=== PATIENT | male | born 1975 | race Caucasian/White ===

== ENCOUNTER 2018-01-08 10:45 | Emergency (ER) | payer BC ==
--- NOTE | 2018-01-08 12:36 | EDM.PDOC ---
ED HPI GENERAL MEDICAL PROBLEM - General Chief Complaint: General Stated Complaint: HAND TINGLING HIGH BP Time Seen by Provider: 01/08/18 11:05 Source of Information: Reports: Patient, Family History Limitations: Reports: No Limitations - History of Present Illness INITIAL COMMENTS - FREE TEXT/NARRATIVE: [place] comes into [facility] ED with a 3 day hx of some lt headiness, tingling in hands , and malaise. He does not report any chest pain, SOB, palpitations, GI upset or voiding problems. He does manual farm labor for a living, admittedly obese, chews snuff, and drinks about a pint of vodka per week. His father of an AMI at age 46. He does not see a physician for routine medical care. - Related Data Allergies Allergy/AdvReac Type Severity Reaction Status Date / Time seasonal Allergy Other Uncoded 01/08/18 11:05 Home Meds: Home Meds Cetirizine [ZyrTEC] 10 mg PO BEDTIME 01/08/18 [History] Levothyroxine 75 mcg PO ACBREAKFAST #20 tab 01/08/18 [Rx] Naproxen Sodium [Aleve] 440 mg PO BID 01/08/18 [History] Past Medical History HEENT History: Reports: Allergic Rhinitis Respiratory History: Reports: Other (See Below) (snoring at night, morbid obesity) Musculoskeletal History: Reports: Arthritis - Past Surgical History Musculoskeletal Surgical History: Reports: Arthroscopic Knee Social & Family History - Tobacco Use Smoking Status *Q: Never Smoker - Caffeine Use Caffeine Use: Reports: Energy Drinks - Alcohol Use Days Per Week of Alcohol Use: 2 Number of Drinks Per Day: 3 Total Drinks Per Week: 6 - Recreational Drug Use Recreational Drug Use: No ED ROS GENERAL - Review of Systems Review Of Systems: See Below Constitutional: Reports: No Symptoms HEENT: Reports: No Symptoms Respiratory: Reports: No Symptoms Cardiovascular: Reports: Lightheadedness Endocrine: Reports: No Symptoms GI/Abdominal: Reports: No Symptoms : Reports: No Symptoms Musculoskeletal: Reports: Joint Pain (R knee arthritic) Skin: Reports: No Symptoms Neurological: Reports: Headache, Tingling (hands and fingers) Psychiatric: Reports: No Symptoms Hematologic/Lymphatic: Reports: No Symptoms Immunologic: Reports: Seasonal Allergy ED EXAM, GENERAL - Physical Exam Exam: See Below Exam Limited By: No Limitations General Appearance: Alert, WD/WN, No Apparent Distress, Obese Eye Exam: Bilateral Eye: EOMI, Normal Inspection, PERRL Ears: Normal External Exam Nose: Normal Inspection Throat/Mouth: Normal Inspection, Normal Lips, Normal Teeth, Normal Gums, Normal Oropharynx, Normal Voice Head: Normocephalic Neck: Normal Inspection, Supple, Non-Tender, Full Range of Motion Respiratory/Chest: No Respiratory Distress, Lungs Clear, Normal Breath Sounds, No Accessory Muscle Use, Chest Non-Tender Cardiovascular: Normal Peripheral Pulses, Regular Rate, Rhythm, No Murmur GI/Abdominal: Normal Bowel Sounds, Soft, Non-Tender, No Organomegaly, No Distention, No Mass (Male) Exam: Deferred Rectal (Males) Exam: Deferred Back Exam: Normal Inspection Extremities: Normal Inspection Neurological: Alert, Oriented, CN II-XII Intact, Normal Cognition, Normal Gait, No Motor/Sensory Deficits Psychiatric: Normal Affect, Normal Mood Skin Exam: Warm, Dry, Intact, Normal Color, No Rash Lymphatic: No Adenopathy Course - Vital Signs Text/Narrative:: Following assessment at the [facility] ED, screening labs, chest x ray and ekg were performed. The ekg was wnl for age, chest x ray wnl for age, and labs noted normal CBC and UA; the CMP noted TSH 11.74, Troponin I <0.017, mild elevation of LFTs. Additional evaluation is suggested, and an appt with a PCP will be secured before discharge. Mr. Story has hypothyroidism, and will start levothyroxine 0.075 mg qd. He needs follow up including cardiac stress testing and a sleep study for suspected ELIAS. Last Recorded V/S: Last Vital Signs Temp 36.6 C 01/08/18 12:00 Pulse 75 01/08/18 12:00 Resp 18 01/08/18 12:00 BP 147/93 H 01/08/18 12:00 Pulse Ox 98 01/08/18 12:00 - Orders/Labs/Meds Orders: Active Orders 24 hr Category Date Time Status Chest 1V Frontal [CR] Stat Exams 01/08/18 10:55 Taken UA W/MICROSCOPIC [URIN] Stat Lab 01/08/18 11:59 Ordered EKG 12 Lead [EK] Routine Ther 01/08/18 10:55 Ordered Labs: Laboratory Tests 01/08/18 01/08/18 01/08/18 Range/Units 11:10 11:10 11:10 WBC 5.3 (4.5-12.0) X10-3/uL RBC 4.84 (4.30-5.75) x10(6)uL Hgb 14.9 (11.5-15.5) g/dL Hct 44.2 (30.0-51.3) % MCV 91.4 (80-96) fL MCH 30.9 (27.7-33.6) pg MCHC 33.8 (32.2-35.4) g/dL RDW 12.4 (11.5-15.5) % Plt Count 280 (125-369) X10(3)uL MPV 7.3 L (7.4-10.4) fL Neut % (Auto) 74.7 (46-82) % Lymph % (Auto) 14.3 (13-37) % Tyler % (Auto) 7.5 (4-12) % Eos % (Auto) 3 (1.0-5.0) % Baso % (Auto) 1 (0-2) % Neut # (Auto) 4.0 (1.6-8.3) # Lymph # (Auto) 0.8 (0.6-5.0) # Tyler # (Auto) 0.4 (0.0-1.3) # Eos # (Auto) 0.1 (0.0-0.8) # Baso # (Auto) 0.0 (0.0-0.2) # D-Dimer, Quantitative 0.47 (0.0-0.59) mg/LFEU Sodium 134 L (135-145) mmol/L Potassium 4.3 (3.5-5.3) mmol/L Chloride 99 L (100-110) mmol/L Carbon Dioxide 29 (21-32) mmol/L BUN 19 H (7-18) mg/dL Creatinine 0.9 (0.70-1.30) mg/dL Est Cr Clr Drug Dosing 110.40 mL/min Estimated GFR (MDRD) > 60 (>60) BUN/Creatinine Ratio 21.1 H (9-20) Glucose 107 (80-116) mg/dL Calcium 9.2 (8.6-10.2) mg/dL Total Bilirubin 1.1 (0.1-1.3) mg/dL AST 31 H (5-25) IU/L ALT 46 H (12-36) U/L Alkaline Phosphatase 54 L (56-112) IU/L Troponin I (<0.017-0.056) ng/mL Total Protein 7.9 (6.0-8.0) g/dL Albumin 3.9 (3.5-5.2) g/dL Globulin 4.0 g/dL Albumin/Globulin Ratio 1.0 TSH, Ultra Sensitive (0.36-3.74) IU/mL Urine Color (YELLOW) Urine Appearance (CLEAR) Urine pH (5.0-6.5) Ur Specific [place] (1.010-1.025) Urine Protein (NEGATIVE) mg/dL Urine Glucose (UA) (NEGATIVE) mg/dL Urine Ketones (NEGATIVE) mg/dL Urine Occult Blood (NEGATIVE) Urine Nitrite (NEGATIVE) Urine Bilirubin (NEGATIVE) Urine Urobilinogen (NEGATIVE) mg/dL Ur Leukocyte Esterase (NEGATIVE) Urine WBC (0) Ur Squamous Epith Cells (NS,R,O) Urine Bacteria (NS) 01/08/18 01/08/18 Range/Units 11:10 11:59 WBC (4.5-12.0) X10-3/uL RBC (4.30-5.75) x10(6)uL Hgb (11.5-15.5) g/dL Hct (30.0-51.3) % MCV (80-96) fL MCH (27.7-33.6) pg MCHC (32.2-35.4) g/dL RDW (11.5-15.5) % Plt Count (125-369) X10(3)uL MPV (7.4-10.4) fL Neut % (Auto) (46-82) % Lymph % (Auto) (13-37) % Tyler % (Auto) (4-12) % Eos % (Auto) (1.0-5.0) % Baso % (Auto) (0-2) % Neut # (Auto) (1.6-8.3) # Lymph # (Auto) (0.6-5.0) # Tyler # (Auto) (0.0-1.3) # Eos # (Auto) (0.0-0.8) # Baso # (Auto) (0.0-0.2) # D-Dimer, Quantitative (0.0-0.59) mg/LFEU Sodium (135-145) mmol/L Potassium (3.5-5.3) mmol/L Chloride (100-110) mmol/L Carbon Dioxide (21-32) mmol/L BUN (7-18) mg/dL Creatinine (0.70-1.30) mg/dL Est Cr Clr Drug Dosing mL/min Estimated GFR (MDRD) (>60) BUN/Creatinine Ratio (9-20) Glucose (80-116) mg/dL Calcium (8.6-10.2) mg/dL Total Bilirubin (0.1-1.3) mg/dL AST (5-25) IU/L ALT (12-36) U/L Alkaline Phosphatase (56-112) IU/L Troponin I < 0.017 L (<0.017-0.056) ng/mL Total Protein (6.0-8.0) g/dL Albumin (3.5-5.2) g/dL Globulin g/dL Albumin/Globulin Ratio TSH, Ultra Sensitive 11.71 H* (0.36-3.74) IU/mL Urine Color Yellow (YELLOW) Urine Appearance Clear (CLEAR) Urine pH 6.5 (5.0-6.5) Ur Specific [place] 1.015 (1.010-1.025) Urine Protein Negative (NEGATIVE) mg/dL Urine Glucose (UA) Normal (NEGATIVE) mg/dL Urine Ketones Negative (NEGATIVE) mg/dL Urine Occult Blood Negative (NEGATIVE) Urine Nitrite Negative (NEGATIVE) Urine Bilirubin Negative (NEGATIVE) Urine Urobilinogen Normal (NEGATIVE) mg/dL Ur Leukocyte Esterase Negative (NEGATIVE) Urine WBC 0-5 (0) Ur Squamous Epith Cells Occasional (NS,R,O) Urine Bacteria Few H (NS) Departure - Departure Time of Disposition: 12:34 Disposition: Home, Self-Care 01 Condition: Good Clinical Impression: Hypothyroidism determined by thyroid function test - Discharge Information *PRESCRIPTION DRUG MONITORING PROGRAM REVIEWED*: Not Applicable *COPY OF PRESCRIPTION DRUG MONITORING REPORT IN PATIENT ALFIE: Not Applicable Referrals: PCP,None [Primary Care Provider] - - Problem List & Annotations (1) Hypothyroidism determined by thyroid function test SNOMED Code(s): 67986104 Code(s): E03.9 - HYPOTHYROIDISM, UNSPECIFIED; R94.6 - ABNORMAL RESULTS OF THYROID FUNCTION STUDIES Status: Acute Current Visit: Yes Annotation/ Comment:: I dispensed levothyroxine 0.075 mg qd, and suggested establishing with a PCP and further consultation for cardiac status and suspected ELIAS. - Problem List Review Problem List Initiated/Reviewed/Updated: Yes - My Orders Last 24 Hours: My Active Orders 01/08/18 10:55 Chest 1V Frontal [CR] Stat EKG 12 Lead [EK] Routine 01/08/18 11:59 UA W/MICROSCOPIC [URIN] Stat - Assessment/Plan Last 24 Hours: My Active Orders 01/08/18 10:55 Chest 1V Frontal [CR] Stat EKG 12 Lead [EK] Routine 01/08/18 11:59 UA W/MICROSCOPIC [URIN] Stat Plan: Follow up with PCP.
--- NOTE | 2018-01-08 13:32 | CR ---
INDICATION: Light-headedness. CHEST: An AP portable upright view of the chest revealed the heart to be likely within normal limits in size, due to the AP positioning and large patient. Evidence of exogenous obesity is noted. A definite active infiltrate or effusion was not identified. Overlying EKG leads are noted. IMPRESSION: 1. No definite acute process. 2. Exogenous obesity. Report was given in person to Dr. Ramírez immediately after the examination was completed on 01/08/2018. ELIDA
== END 2018-01-08 12:46 | disposition home or self-care (01) ==
LOC: FB.ED 10:45
DX: E03.9 Hypothyroidism, unspecified (principal)
CPT/HCPCS: 36415; 71045; 80053; 81001; 84443; 84484; 85025; 85379; 93005; 99284

== ENCOUNTER 2021-08-21 16:16 | Emergency (ER) | payer BC ==
[2021-08-21] MEDS ORDERED: Propofol 200 MG/20 ML SDV IV ONE (16:17)
[2021-08-21] MEDS ORDERED: fentaNYL 100 MCG/2 ML SDV IV ONE (16:17)
[2021-08-21] MEDS ORDERED: Midazolam 1 MG/ML 2 ML SDV IV ONE (16:17)
== END 2021-08-21 19:42 | disposition home or self-care (01) ==
LOC: FB.ED 16:16
DX: S83.004A Unspecified dislocation of right patella, initial encounter (principal); Z79.82 Long term (current) use of aspirin; Z79.899 Other long term (current) drug therapy; X58.XXXA Exposure to other specified factors, initial encounter
CPT/HCPCS: 27560; 73560; 73562; 99283; J2250; J2704; J3010